=== PATIENT | male | born 1975 | race Caucasian/White ===

== ENCOUNTER 2020-10-15 07:22 | Emergency (ER) | payer BC, OTHER ==
--- NOTE | 2020-10-15 07:31 | EDM.PDOC ---
ED HPI GENERAL MEDICAL PROBLEM - General Chief Complaint: Gastrointestinal Problem Stated Complaint: [facility] Time Seen by Provider: 10/15/20 07:29 - History of Present Illness INITIAL COMMENTS - FREE TEXT/NARRATIVE: 45-year-old male brought in by us with bleeding from his perirectal drains. Patient has longstanding Crohn's disease. Patient had a new drain placed in the perirectal region about a week and a half ago. I had the opportunity to discuss this with his air surveillance operator, Dr. Rice at [facility] in [place] who says that they mostly drained old blood out of it. The patient was at work this morning and felt fluid draining down his leg and he states he had a large amount of blood coming from the region of his drains. Patient really denies any pain at this time. Dr. Rice was concerned about a phone call that his office received from the patient complaining of fevers and chills. The patient confirms he has been having some intermittent fevers and chills for about the last week or so. Patient does deny any pain or any pain at this time. Patient has had normal colored bowel movements lately and he has not noticed any blood with this. - Related Data Allergies Allergy/AdvReac Type Severity Reaction Status Date / Time ibuprofen Allergy Rectal Verified 10/15/20 07:32 Bleeding ED ROS GENERAL - Review of Systems Review Of Systems: See Below Constitutional: Reports: Fever, Chills HEENT: Reports: No Symptoms Respiratory: Reports: No Symptoms Cardiovascular: Reports: No Symptoms GI/Abdominal: Reports: Abdominal Pain. Denies: Constipation, Diarrhea : Reports: No Symptoms Musculoskeletal: Reports: No Symptoms Skin: Reports: No Symptoms Neurological: Reports: No Symptoms ED EXAM, GENERAL - Physical Exam Exam: See Below Exam Limited By: No Limitations General Appearance: Alert, No Apparent Distress Head: Atraumatic, Normocephalic Neck: Normal Inspection, Supple, Non-Tender Respiratory/Chest: No Respiratory Distress, Lungs Clear, Normal Breath Sounds Cardiovascular: Regular Rate, Rhythm, No Edema, No Murmur GI/Abdominal: Normal Bowel Sounds, Soft, Non-Tender (No tenderness with palpation) Rectal (Males) Exam: Heme + Stool, Other (Four perirectal drains. Patient has small amount of blood that is saturated his underwear and into his pants few clots noted in the perirectal area. The area was cleaned attempted digital rectal exam no real stool Hemoccult is weakly positive.) Back Exam: Normal Inspection. No: CVA Tenderness (L), CVA Tenderness (R) Extremities: Normal Inspection, Normal Range of Motion, Non-Tender Neurological: Alert, Oriented, Normal Cognition Course - Vital Signs Last Recorded V/S: Last Vital Signs Temp 36.3 C 10/15/20 07:28 Pulse 87 10/15/20 07:28 Resp 18 10/15/20 07:28 BP 136/82 10/15/20 07:28 Pulse Ox 98 10/15/20 07:28 - Orders/Labs/Meds Orders: Active Orders 24 hr Category Date Time Status Pelvis w Cont [CT] Stat Exams 10/15/20 09:19 Taken Lactated Ringers [Ringers, Lactated] 1,000 ml Med 10/15/20 08:00 Active IV ASDIRECTED Sodium Chloride 0.9% [Saline Flush] Med 10/15/20 09:26 Active 10 ml FLUSH ONETIME PRN Medication Orders Lactated Ringer's (Ringers, Lactated) 1,000 mls @ 150 mls/hr IV ASDIRECTED SHERMAN Last Admin: 10/15/20 08:34 Dose: 150 mls/hr Documented by: SHAD Sodium Chloride (Sodium Chloride 0.9% 10 Ml Syringe) 10 ml FLUSH ONETIME PRN PRN Reason: IV FLUSH Last Admin: 10/15/20 09:30 Dose: 10 ml Documented by: HELGA Labs: Laboratory Tests 10/15/20 10/15/20 10/15/20 Range/Units 08:00 08:00 08:00 WBC 7.59 (4.23-9.07) K/mm3 RBC 4.90 (4.63-6.08) M/mm3 Hgb 13.7 (13.7-17.5) gm/dl Hct 42.1 (40.1-51.0) % MCV 85.9 (79.0-92.2) fl MCH 28.0 (25.7-32.2) pg MCHC 32.5 (32.2-35.5) g/dl RDW Std Deviation 46.3 H (35.1-43.9) fL Plt Count 268 (163-337) K/mm3 MPV 10.0 (9.4-12.3) fl Neut % (Auto) 65.7 (34.0-67.9) % Lymph % (Auto) 19.6 L (21.8-53.1) % Mills % (Auto) 9.9 (5.3-12.2) % Eos % (Auto) 4.3 (0.8-7.0) Baso % (Auto) 0.4 (0.1-1.2) % Neut # (Auto) 4.98 (1.78-5.38) K/mm3 Lymph # (Auto) 1.49 (1.32-3.57) K/mm3 Mills # (Auto) 0.75 (0.30-0.82) K/mm3 Eos # (Auto) 0.33 (0.04-0.54) K/mm3 Baso # (Auto) 0.03 (0.01-0.08) K/mm3 PT 10.6 (9.7-12.0) SECONDS INR 0.99 APTT 26.5 (21.7-31.4) SECONDS Sodium 142 (136-145) mEq/L Potassium 3.7 (3.5-5.1) mEq/L Chloride 106 (98-107) mEq/L Carbon Dioxide 26 (21-32) mEq/L Anion Gap 13.7 (5-15) BUN 16 (7-18) mg/dL Creatinine 1.1 (0.7-1.3) mg/dL Est Cr Clr Drug Dosing TNP Estimated GFR (MDRD) > 60 (>60) mL/min BUN/Creatinine Ratio 14.5 (14-18) Glucose 83 (70-99) mg/dL Calcium 8.6 (8.5-10.1) mg/dL Total Bilirubin 0.2 (0.2-1.0) mg/dL AST 11 L (15-37) U/L ALT 21 (16-63) U/L Alkaline Phosphatase 72 (46-116) U/L Total Protein 7.1 (6.4-8.2) g/dl Albumin 2.8 L (3.4-5.0) g/dl Globulin 4.3 gm/dL Albumin/Globulin Ratio 0.7 L (1-2) Meds: Medications Generic Name Dose Route Start Last Admin Trade Name Freq PRN Reason Stop Dose Admin Lactated Ringer's 1,000 mls @ 150 mls/hr 10/15/20 08:00 10/15/20 08:34 Ringers, Lactated IV 150 mls/hr ASDIRECTED SHERMAN Administration Sodium Chloride 10 ml 10/15/20 09:26 10/15/20 09:30 Sodium Chloride 0.9% 10 Ml Syringe FLUSH 10 ml ONETIME PRN Administration IV FLUSH Discontinued Medications Generic Name Dose Route Start Last Admin Trade Name Marisa PRN Reason Stop Dose Admin Iopamidol 50 ml 10/15/20 09:26 10/15/20 09:30 Iopamidol 612 Mg/Ml 50 Ml Sdv IVPUSH 10/15/20 09:27 50 ml ONETIME ONE Administration Iopamidol 100 ml 10/15/20 09:26 10/15/20 09:30 Iopamidol 612 Mg/Ml 100 Ml Bottle IVPUSH 10/15/20 09:27 100 ml ONETIME ONE Administration - Re-Assessments/Exams Free Text/Narrative Re-Assessment/Exam: 10/15/20 07:[address] Rice, patient's air surveillance operator at [facility] he was getting the patient scheduled for a CT pelvis with IV contrast as they had a message that the patient was not doing well. I will go ahead and do this for Dr. Rice. And check some routine labs and I will call Dr. Rice with the results. 10/15/20 12:07 Discussed with , air surveillance operator on-call for [facility]. His recommendation is the patient follow-up with gastroenterology at the end of this week. Thought is the bleeding is coming from the drains. No change in medical management at this point the patient is to continue his Remicade Departure - Departure Time of Disposition: 12:08 Disposition: Home, Self-Care 01 Clinical Impression: Crohn's disease of rectum with fistula - Discharge Information Forms: ED Department Discharge, ED Return to Work/School Form Additional Instructions: Return to the emergency room with any questions problems or worsening symptoms. Continue your current Crohn's treatment with Remicade. Follow-up with gastroenterology at [facility] later this week. Sepsis Event Note (ED) - Focused Exam Vital Signs: Vital Signs Temp Pulse Resp BP Pulse Ox 10/15/20 07:28 36.3 C 87 18 136/82 98 - My Orders Last 24 Hours: My Active Orders 10/15/20 08:00 Lactated Ringers [Ringers, Lactated] 1,000 ml IV ASDIRECTED 10/15/20 09:19 Pelvis w Cont [CT] Stat 10/15/20 09:26 Sodium Chloride 0.9% [Saline Flush] 10 ml FLUSH ONETIME PRN - Assessment/Plan Last 24 Hours: My Active Orders 10/15/20 08:00 Lactated Ringers [Ringers, Lactated] 1,000 ml IV ASDIRECTED 10/15/20 09:19 Pelvis w Cont [CT] Stat 10/15/20 09:26 Sodium Chloride 0.9% [Saline Flush] 10 ml FLUSH ONETIME PRN
[2020-10-15] MEDS ORDERED: Lactated Ringers 1,000 ML IV SCH (08:00)
[2020-10-15] MEDS ORDERED: Sodium Chloride 0.9% 10 ML Syringe FLUSH PRN (09:26)
[2020-10-15] MEDS ORDERED: Iopamidol 612 MG/ML 50 ML SDV IVPUSH ONE (09:26)
[2020-10-15] MEDS ORDERED: Iopamidol 612 MG/ML 100 ML Bottle IVPUSH ONE (09:26)
--- NOTE | 2020-10-16 08:20 | CT ---
CT pelvis Technique: Multiple axial sections were obtained from above the iliac crest inferiorly through the pubic symphysis. Intravenous contrast was utilized. Reconstructed coronal and sagittal images were obtained. Comparison: No prior pelvic imaging is available. 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 Evidence of prior surgery is seen within the bowel as well as within the rectum. No pelvic mass or adenopathy is seen. No inflammatory change is seen. Small partial fat-containing left inguinal hernia is noted. There is no inflammatory change being seen around the rectum and the perirectal soft tissues. Prostate gland shows calcification. Bone window settings were reviewed which show no acute osseous finding. Impression: 1. Findings as noted above which I believe are chronic. 2. Nothing acute is appreciated on CT study of the pelvis. Diagnostic code #2 MTDD
== END 2020-10-15 12:31 | disposition home or self-care (01) ==
LOC: JD.ED 07:22
DX: K50.113 Crohn's disease of large intestine with fistula (principal); Z88.6 Allergy status to analgesic agent
CPT/HCPCS: 36415; 72193; 80053; 85025; 85610; 85730; 99284; J7120; Q9967